=== PATIENT | female | born 1940 | race Caucasian/White ===

== ENCOUNTER → 2017-10-30 09:40 | Outpatient (CLI) | payer MEDICARE, OTHER ==
[2016-02-22 16:58] VITALS: BMI 33.0
[~2017-10-30 09:40] MED LIST: ARICEPT5 MG PO; BAYER CHEWABLE81 MG PO; CRESTOR10 MG PO; LISINOPRIL5 MG; LISINOPRIL5 MG PO; NAMENDA5 MG PO; PLAVIX75 MG PO; RELAFEN500 MG PO; SYNTHROID100 MCG PO
== END | disposition home or self-care (01) ==
LOC: D.US 09:40
DX: I65.23 Occlusion and stenosis of bilateral carotid arteries (principal)

== ENCOUNTER → 2018-12-28 12:51 | Outpatient (CLI) | payer MEDICARE, OTHER ==
[2016-02-22 16:58] VITALS: BMI 33.0
== END | disposition home or self-care (01) ==
LOC: D.US 12:51
PROVIDERS: ATTEND Internal Medicine Cardiovascular Disease
DX: I65.23 Occlusion and stenosis of bilateral carotid arteries (principal)

== ENCOUNTER 2019-08-23 21:25 | Emergency (ER) | payer MEDICARE, OTHER ==
[~2019-08-23] VITALS: Ht 157.5 cm; Wt 90.8 kg
[2019-08-23 21:25] VITALS: Ht 157.5 cm; Wt 90.8 kg
[2019-08-23 22:02] LABS: BASOPHILS 0.1 % (0-2); EOSINOPHILS 1.1 % (0-7); HEMATOCRIT 43.9 % (36.0-48.0); HEMOGLOBIN 13.7 g/dL (12-16); IMMATURE GRANULOCYTES 0.3 % (0-5); LYMPHOCYTES 36.2 % (15-50); MCH 27.4 pg (26.0-34.0); MCHC 31.2 g/dL (31.0-37.0); MCV 87.8 fL (80.0-100.0); MONOCYTES 8.4 % (2-11); NEUTROPHILS 53.9 % (40-80); RDW 16.8 % (11.5-14.5); WBC 7.9 10x3/uL (4.8-10.8)
[2019-08-23 22:03] LABS: PLATELET COUNT 152 10x3/uL (130-400)
[2019-08-23 22:08] LABS: CALC OSMOLALITY 290 mosm/kg (275-300); CALCIUM 8.6 mg/dL (8.5-10.1); CARBON DIOXIDE 28.3 mmol/L (21.0-32.0); CHLORIDE - SERUM 109 mmol/L (98-107); CREATININE - SERUM 0.8 mg/dL (0.6-1.3); GLUCOSE 104 mg/dL (74-106); POTASSIUM - SERUM 4.5 mmol/L (3.5-5.1); SODIUM 146 mmol/L (136-145); UREA NITROGEN 13 mg/dL (7-18); eGFR NON AFRICAN AMERICAN 74 mL/min (90-120)
[2019-08-23 22:13] LABS: INR 0.85 (0.85-1.17); PROTIME 11.2 SECONDS (11.6-15.0)
[2019-08-23 22:29] LABS: ALBUMIN 2.8 g/dL (3.4-5.0); ALKALINE PHOSPHATASE 111 U/L (46-116); ALT (SGPT) 22 U/L (10-68); BILIRUBIN - TOTAL 1.26 mg/dL (0.2-1.3); CKMB 1.2 U/L (0.0-3.6); CREATINE KINASE 53 UL (21-215); MAGNESIUM - SERUM 1.8 mg/dL (1.8-2.4); THYROID STIMULATING HORMONE 0.07 uIU/mL (0.36-3.74)
[2019-08-23 22:36] LABS: TROPONIN-I 0.254 ng/mL (0.000-0.060)
[2019-08-23 23:24] LABS: APPEARANCE CLEAR (CLEAR); COLOR YELLOW (YELLOW)
[2019-08-23 23:25] LABS: BILIRUBIN NEGATIVE (NEGATIVE); GLUCOSE NEGATIVE (NEGATIVE); KETONE NEGATIVE (NEGATIVE); NITRITE NEGATIVE (NEGATIVE); PROTEIN NEGATIVE (NEGATIVE); UROBILINOGEN NORMAL (NORMAL)
[2019-08-23 23:26] LABS: BACTERIA FEW /hpf (NEGATIVE); EPITHELIAL CELLS 0-5 /hpf (0-5); RED CELLS - URINE 0-5 /hpf (0-5); WHITE CELLS - URINE 0-5 /hpf (NEGATIVE)
[2019-08-23 23:56] VITALS: BP 109/61
== END 2019-08-23 23:56 | disposition other institution (70) ==
LOC: D.ER 21:25
PROVIDERS: Emergency Medicine
DX: I63.89 Other cerebral infarction (principal); R79.89 Other specified abnormal findings of blood chemistry; I20.9 Angina pectoris, unspecified; M19.90 Unspecified osteoarthritis, unspecified site; F03.90 Unspecified dementia, unspecified severity, without behavioral disturbance, psychotic disturbance, mood disturbance, and anxiety